=== PATIENT | female | born 1950 | race Caucasian/White ===

== ENCOUNTER 2021-04-29 07:29 | Day surgery (SDC) | payer MEDICARE ==
[2021-04-28 11:31] VITALS: BMI 27.6
[~2021-04-29 07:29] MED LIST: EPINEPHrine 0.3 MG in Ophthalmic Irrigation Solution 500 ML IRR SCH
[2021-04-29] MEDS ORDERED: Cyclopentolate 1% Opth Drop 2 ML BOT ONE (07:53)
[2021-04-29] MEDS ORDERED: Phenylephrine 2.5% Ophth Soln 5 ML BOT ONE (07:53)
[2021-04-29] MEDS ORDERED: Midazolam HCl 2 mg/2 ml Vial ONE (08:05)
[2021-04-29] MEDS ORDERED: PROPOFOL 20 ML ONE (08:05)
[2021-04-29] MEDS ORDERED: Fentanyl 100 MCG/2 ML VIAL ONE (08:05)
[2021-04-29] MEDS ORDERED: Lidocaine 1% PF 5 ML VIAL ONE (09:22)
[2021-04-29] MEDS ORDERED: Maxitrol 0.1% Opth Oint 3.5 GM TUBE ONE (09:22)
[2021-04-29] MEDS ORDERED: Triamcinolone 40 MG/ML VIAL ONE (09:22)
[2021-04-29] MEDS ORDERED: CEFAZOLIN 1 GM VIAL ONE (09:22)
[2021-04-29] MEDS ORDERED: Bupivacaine PF 0.75% SDV 10 ML ONE (09:22)
[2021-04-29] MEDS ORDERED: Lidocaine 4% PF 5 ML AMP ONE (09:22)
== END 2021-04-29 10:28 | disposition home or self-care (01) ==
LOC: SDC 07:29
PROVIDERS: ATTEND Ophthalmology Retina Specialist
PROC: 08T43ZZ Resection of Right Vitreous, Percutaneous Approach (ICD-10-PCS; principal; 2021-04-29)
DX: H43.821 Vitreomacular adhesion, right eye (principal); H43.311 Vitreous membranes and strands, right eye; I10 Essential (primary) hypertension; E78.5 Hyperlipidemia, unspecified; I25.2 Old myocardial infarction; E11.9 Type 2 diabetes mellitus without complications; F17.200 Nicotine dependence, unspecified, uncomplicated; Z86.73 Personal history of transient ischemic attack (TIA), and cerebral infarction without residual deficits; Z79.01 Long term (current) use of anticoagulants; Z79.02 Long term (current) use of antithrombotics/antiplatelets; Z79.4 Long term (current) use of insulin; Z79.82 Long term (current) use of aspirin; Z79.899 Other long term (current) drug therapy; Z95.1 Presence of aortocoronary bypass graft
CPT/HCPCS: J0171; J0690; J2250; J2704; J3010; J3301; J3490

== ENCOUNTER 2021-07-14 14:09 | Inpatient (IN) | payer MEDICARE ==
[2021-07-14] MEDS ORDERED: Pantoprazole 40 MG VIAL ONE (14:53)
[2021-07-14 15:07] LABS: #Eosinphils 0.1 thou/uL (0.0-0.7); #Lymphocytes 1.1 thou/uL (1.20-3.40); #Neutrophils 7.9 thou/uL (1.40-6.50); %Basophils 0.4 % (0.0-1.0); %Eosinophils 1.4 % (0.0-10.0); %Lymphocytes 10.6 % (21.0-51.0); %Monocytes 10.1 % (0.0-10.0); %Neutrophils 77.5 % (42.0-75.0); Hemoglobin 10.8 g/dL (12.0-16.0); Mean Corpuscular HGB CONC 33.1 g/dL (32.0-36.0); Mean Corpuscular Hemoglobin 29.3 pg (27.0-31.0); Mean Corpuscular Volume 88.6 fL (78.0-98.0); Mean Platelet Volume 6.5 fL (7.4-10.4); Platelet Count 369 thou/uL (130-400); RBC Distribution Width 14.4 % (11.5-14.5); Red Blood Cell (RBC) Count 3.68 mill/uL (4.20-5.40); White Blood Cell (WBC) Count 10.2 thou/uL (4.8-10.8)
[2021-07-14 15:26] LABS: ALT (SGPT) 39 U/L (8-55); AST (SGOT) 40 U/L (5-34); Albumin 3.3 g/dL (3.4-4.8); Alkaline Phosphatase 111 U/L (40-110); Anion Gap 18 mmol/L (10-20); BUN (Urea Nitrogen) 32 mg/dL (9.8-20.1); Bilirubin, Total 0.4 mg/dL (0.2-1.2); Calc. Creatinine Clearance 0 mL/min (70-130); Calcium 8.8 mg/dL (7.8-10.44); Carbon Dioxide 20 mmol/L (23-31); Chloride 102 mmol/L (98-107); Globulin 2.8 g/dL (2.4-3.5); Glucose 188 mg/dL (80-115); Potassium 4.7 mmol/L (3.5-5.1); Protein, Total 6.1 g/dL (5.8-8.1); Sodium 135 mmol/L (136-145)
[2021-07-14 15:54] LABS: INR-International Normal Ratio 1.1; Prothrombin Time 13.9 sec (12.0-14.7)
[2021-07-14] MEDS ORDERED: Acetaminophen 325 MG TAB PO PRN (18:31)
[2021-07-14] MEDS ORDERED: Zolpidem Tartrate 5 MG TAB PO PRN (19:05)
[2021-07-14] MEDS ORDERED: Senokot S 8.6-50 MG TAB PO PRN (19:05)
[2021-07-14] MEDS ORDERED: Bisacodyl 5 MG TAB PO PRN (19:05)
[2021-07-14] MEDS ORDERED: Dextrose 50% Abboject 50 ML SYRINGE SLOW IVP PRN (19:19)
[2021-07-14] MEDS ORDERED: Dextrose 5% in Water 1,000 ML IV PRN (19:19)
[2021-07-14] MEDS ORDERED: cloNIDine 0.1 MG TAB PO PRN (19:30)
[2021-07-14 20:27] VITALS: BMI 31.1
[2021-07-14] MEDS: Sodium Chloride 0.9% 1,000 ML IV SCH (21:20)
[2021-07-14] MEDS: HYDROcodone/Acetaminophen 5/325 mg Tablet PO PRN (21:20)
[2021-07-14] MEDS: Donepezil HCl 10 MG TAB PO SCH (21:21)
[2021-07-14] MEDS: Pramipexole Di-HCl 0.25 MG TAB PO SCH (21:34)
[2021-07-14] MEDS: Pantoprazole 40 MG VIAL IVP SCH (21:35)
[2021-07-15 01:02] LABS: SARS-CoV-2 NAA Rapid Test Not Detected (NotDetected)
[2021-07-15] MEDS: HYDROcodone/Acetaminophen 5/325 mg Tablet PO PRN ×4 (04:54→23:08)
[2021-07-15] MEDS: HumaLOG 300 UNITS/3 ML VIAL SC PRN ×2 (04:55→16:51)
[2021-07-15] MEDS: Cilostazol 100 MG TAB PO SCH ×2 (05:14→16:34)
[2021-07-15 06:59] LABS: #Eosinphils 0.2 thou/uL (0.0-0.7); #Lymphocytes 1.3 thou/uL (1.20-3.40); #Neutrophils 6.2 thou/uL (1.40-6.50); %Basophils 0.5 % (0.0-1.0); %Eosinophils 1.9 % (0.0-10.0); %Lymphocytes 14.5 % (21.0-51.0); %Monocytes 11.9 % (0.0-10.0); %Neutrophils 71.3 % (42.0-75.0); Hemoglobin 9.7 g/dL (12.0-16.0); Mean Corpuscular HGB CONC 32.4 g/dL (32.0-36.0); Mean Corpuscular Hemoglobin 28.8 pg (27.0-31.0); Mean Corpuscular Volume 88.8 fL (78.0-98.0); Mean Platelet Volume 6.5 fL (7.4-10.4); Platelet Count 383 thou/uL (130-400); RBC Distribution Width 14.3 % (11.5-14.5); Red Blood Cell (RBC) Count 3.37 mill/uL (4.20-5.40); White Blood Cell (WBC) Count 8.7 thou/uL (4.8-10.8)
[2021-07-15 07:19] LABS: Anion Gap 18 mmol/L (10-20); BUN (Urea Nitrogen) 31 mg/dL (9.8-20.1); Calc. Creatinine Clearance 50 mL/min (70-130); Calcium 8.4 mg/dL (7.8-10.44); Carbon Dioxide 18 mmol/L (23-31); Chloride 107 mmol/L (98-107); Glucose 164 mg/dL (80-115); Potassium 4.2 mmol/L (3.5-5.1); Sodium 139 mmol/L (136-145)
[2021-07-15] MEDS: Pantoprazole 40 MG VIAL IVP SCH ×2 (09:59→21:11)
[2021-07-15] MEDS: Atorvastatin Calcium 40 MG TAB PO SCH (10:03)
[2021-07-15] MEDS: Ascorbic Acid 500 mg Chewable Tablet PO SCH (10:03)
[2021-07-15] MEDS: Ferrous Sulfate 325 MG TAB PO SCH (10:03)
[2021-07-15] MEDS: Aripiprazole 2 MG TAB PO SCH (10:03)
[2021-07-15] MEDS: Sodium Chloride 0.9% 1,000 ML IV SCH ×2 (10:08→23:07)
[2021-07-15] MEDS ORDERED: PROPOFOL 200 MG/20 ML VIAL ONE (11:35)
[2021-07-15] MEDS ORDERED: hydrALAZINE 20 MG/ML VIAL SLOW IVP SCH (12:00)
[2021-07-15] MEDS: Pramipexole Di-HCl 0.25 MG TAB PO SCH (21:23)
[2021-07-15] MEDS: Donepezil HCl 10 MG TAB PO SCH (21:28)
[2021-07-16] MEDS: HYDROcodone/Acetaminophen 5/325 mg Tablet PO PRN ×2 (04:58→13:47)
[2021-07-16] MEDS: Ascorbic Acid 500 mg Chewable Tablet PO SCH (07:56)
[2021-07-16] MEDS ORDERED: traZODone HCl 50 MG TAB PER TUBE PRN (07:56)
[2021-07-16] MEDS ORDERED: Simethicone Chewable 80 MG TAB PO PRN (07:56)
[2021-07-16] MEDS: Ferrous Sulfate 325 MG TAB PO SCH (07:56)
[2021-07-16] MEDS ORDERED: HYDROcodone/Acetaminophen 5/325 mg Tablet PER TUBE PRN (07:56)
[2021-07-16] MEDS ORDERED: Acetaminophen 650 MG/20.3 ML UDCUP PER TUBE PRN (07:56)
[2021-07-16] MEDS: Aripiprazole 2 MG TAB PO SCH (07:56)
[2021-07-16] MEDS ORDERED: Calcium Carbonate 500 MG ChewTAB PER TUBE PRN (07:56)
[2021-07-16] MEDS: Atorvastatin Calcium 40 MG TAB PO SCH (07:56)
[2021-07-16] MEDS: Cilostazol 100 MG TAB PO SCH ×2 (07:57→16:10)
[2021-07-16] MEDS: Pantoprazole 40 MG VIAL IVP SCH ×2 (08:00→20:37)
[2021-07-16] MEDS: Carvedilol 6.25 MG TAB PER TUBE SCH ×2 (10:45→20:37)
[2021-07-16] MEDS: Aspirin Chewable 81 MG TAB PER TUBE SCH (10:46)
[2021-07-16] MEDS: Amlodipine 5 MG TAB PER TUBE SCH (10:47)
[2021-07-16] MEDS: TICAGRELOR 90 MG TABLET PER TUBE SCH ×2 (10:47→20:39)
[2021-07-16] MEDS: Isosorbide Dinitrate 20 MG TAB PO SCH ×3 (10:47→20:38)
[2021-07-16] MEDS: Lantus 1000 UNITS/10 ML VIAL SC SCH ×2 (10:49→20:39)
[2021-07-16] MEDS: HumaLOG 300 UNITS/3 ML VIAL SC PRN ×2 (10:56→16:11)
[2021-07-16] MEDS: Sodium Chloride 0.9% 1,000 ML IV SCH ×2 (10:59→22:51)
[2021-07-16] MEDS: hydrALAZINE 25 MG TAB PER TUBE SCH ×2 (13:49→21:19)
[2021-07-16] MEDS: Ondansetron PF 4 MG/2 ML Vial IVP PRN ×2 (14:02→21:38)
[2021-07-16 17:50] LABS: Anion Gap 10 mmol/L (10-20); BUN (Urea Nitrogen) 25 mg/dL (9.8-20.1); Calc. Creatinine Clearance 61 mL/min (70-130); Calcium 8.2 mg/dL (7.8-10.44); Carbon Dioxide 22 mmol/L (23-31); Chloride 112 mmol/L (98-107); Glucose 230 mg/dL (80-115); Potassium 4.1 mmol/L (3.5-5.1); Sodium 140 mmol/L (136-145)
[2021-07-16] MEDS: Pramipexole Di-HCl 0.25 MG TAB PO SCH (20:37)
[2021-07-16] MEDS: Donepezil HCl 10 MG TAB PO SCH (20:39)
[2021-07-16] MEDS ORDERED: Melatonin 3 MG TAB PER TUBE SCH (21:00)
[2021-07-16] MEDS: Loperamide HCl 2 MG CAP PO PRN (22:49)
[2021-07-17] MEDS: HYDROcodone/Acetaminophen 5/325 mg Tablet PO PRN ×3 (00:49→13:54)
[2021-07-17] MEDS: hydrALAZINE 25 MG TAB PER TUBE SCH ×2 (05:50→13:54)
[2021-07-17] MEDS: HumaLOG 300 UNITS/3 ML VIAL SC PRN (05:54)
[2021-07-17 07:59] VITALS: TEMP 97.9
[2021-07-17] MEDS: Pantoprazole 40 MG VIAL IVP SCH (09:35)
[2021-07-17] MEDS: Atorvastatin Calcium 40 MG TAB PO SCH (09:35)
[2021-07-17] MEDS: TICAGRELOR 90 MG TABLET PER TUBE SCH (09:35)
[2021-07-17] MEDS: Aripiprazole 2 MG TAB PO SCH (09:35)
[2021-07-17] MEDS: Ferrous Sulfate 325 MG TAB PO SCH (09:35)
[2021-07-17] MEDS: Aspirin Chewable 81 MG TAB PER TUBE SCH (09:35)
[2021-07-17] MEDS: Isosorbide Dinitrate 20 MG TAB PO SCH (09:35)
[2021-07-17] MEDS: Cilostazol 100 MG TAB PO SCH (09:35)
[2021-07-17] MEDS: Carvedilol 6.25 MG TAB PER TUBE SCH (09:35)
[2021-07-17] MEDS: Ascorbic Acid 500 mg Chewable Tablet PO SCH (09:36)
[2021-07-17] MEDS: Lantus 1000 UNITS/10 ML VIAL SC SCH (09:36)
[2021-07-17] MEDS: Amlodipine 5 MG TAB PER TUBE SCH (09:36)
[2021-07-17] MEDS: Loperamide HCl 2 MG CAP PO PRN (09:40)
[2021-07-17 10:07] VITALS: BP 154/75
== END 2021-07-17 14:43 | DRG 394 ==
LOC: ERS 14:09 → T4-A 18:00 → ERS 18:33
PROVIDERS: ADMIT Internal Medicine; ATTEND Internal Medicine
PROC: 0DJ08ZZ Inspection of Upper Intestinal Tract, Via Natural or Artificial Opening Endoscopic (ICD-10-PCS; principal; 2021-07-14)
DX: K94.21 Gastrostomy hemorrhage (principal); N17.9 Acute kidney failure, unspecified; I69.954 Hemiplegia and hemiparesis following unspecified cerebrovascular disease affecting left non-dominant side; E46 Unspecified protein-calorie malnutrition; K22.10 Ulcer of esophagus without bleeding; Y83.8 Other surgical procedures as the cause of abnormal reaction of the patient, or of later complication, without mention of misadventure at the time of the procedure; Z20.822 Contact with and (suspected) exposure to COVID-19; Z66 Do not resuscitate; I25.10 Atherosclerotic heart disease of native coronary artery without angina pectoris; K94.23 Gastrostomy malfunction; E11.51 Type 2 diabetes mellitus with diabetic peripheral angiopathy without gangrene; D64.9 Anemia, unspecified; F03.90 Unspecified dementia, unspecified severity, without behavioral disturbance, psychotic disturbance, mood disturbance, and anxiety; R13.10 Dysphagia, unspecified; E66.9 Obesity, unspecified; Z87.891 Personal history of nicotine dependence; Z95.5 Presence of coronary angioplasty implant and graft; Z90.49 Acquired absence of other specified parts of digestive tract; Z90.710 Acquired absence of both cervix and uterus; Z79.899 Other long term (current) drug therapy; Z79.82 Long term (current) use of aspirin; Z79.4 Long term (current) use of insulin; Z68.31 Body mass index [BMI] 31.0-31.9, adult; I69.991 Dysphagia following unspecified cerebrovascular disease; I69.922 Dysarthria following unspecified cerebrovascular disease
CPT/HCPCS: 36415; 36416; 80048; 85610; 85730; 86850; 86900; 86901; 96374; C9113; J0360; J1815; J2405; J2704; J7050; U0002

== ENCOUNTER 2021-07-22 12:44 | Inpatient (IN) | payer MEDICARE ==
[2021-07-22 16:29] LABS: #Eosinphils 0.1 thou/uL (0.0-0.7); #Lymphocytes 1.1 thou/uL (1.20-3.40); #Monocytes 0.8 thou/uL (0.11-0.59); #Neutrophils 5.9 thou/uL (1.40-6.50); %Basophils 0.3 % (0.0-1.0); %Eosinophils 1.5 % (0.0-10.0); %Lymphocytes 14.1 % (21.0-51.0); %Monocytes 10.6 % (0.0-10.0); %Neutrophils 73.5 % (42.0-75.0); Hemoglobin 9.4 g/dL (12.0-16.0); Mean Corpuscular Hemoglobin 30.1 pg (27.0-31.0); Mean Platelet Volume 6.5 fL (7.4-10.4); Platelet Count 292 thou/uL (130-400); RBC Distribution Width 14.3 % (11.5-14.5); Red Blood Cell (RBC) Count 3.12 mill/uL (4.20-5.40)
[2021-07-22 16:50] LABS: ALT (SGPT) 21 U/L (8-55); AST (SGOT) 20 U/L (5-34); Alkaline Phosphatase 99 U/L (40-110); Anion Gap 12 mmol/L (10-20); BUN (Urea Nitrogen) 14 mg/dL (9.8-20.1); Bilirubin, Total 0.2 mg/dL (0.2-1.2); Calc. Creatinine Clearance 0 mL/min (70-130); Calcium 8.5 mg/dL (7.8-10.44); Carbon Dioxide 21 mmol/L (23-31); Chloride 110 mmol/L (98-107); Globulin 2.7 g/dL (2.4-3.5); Glucose 129 mg/dL (80-115); Potassium 4.4 mmol/L (3.5-5.1); Protein, Total 5.7 g/dL (5.8-8.1); Sodium 139 mmol/L (136-145)
[2021-07-22] MEDS ORDERED: Dextrose 5% in Water 1,000 ML IV PRN (20:26)
[2021-07-22] MEDS ORDERED: Dextrose 50% Abboject 50 ML SYRINGE SLOW IVP PRN (20:26)
[2021-07-22] MEDS ORDERED: Lactated Ringer's 1,000 ML IV SCH (20:30)
[2021-07-22] MEDS ORDERED: Acetaminophen 325 MG Suppository PR PRN (20:31)
[2021-07-22] MEDS ORDERED: Sodium Chloride 0.9% (PF) 10 ML VIAL FS PRN (21:15)
[2021-07-22 21:35] VITALS: BMI 32.3
[2021-07-22] MEDS ORDERED: FLU VACC QS2021-22(65YR UP)/PF 240 MCG/0.7 ML SYRINGE IM ONE (22:00)
[2021-07-22] MEDS: Pantoprazole 40 MG VIAL IVP SCH (22:12)
[2021-07-22] MEDS: Ampicillin/Sulbactam 3 GM in Sodium Chloride 0.9% 100 ML IVPB SCH (23:51)
[2021-07-23] MEDS: Dextrose 5 %-0.45 % NaCl 1,000 ML IV SCH ×2 (00:08→16:26)
[2021-07-23] MEDS: Ampicillin/Sulbactam 3 GM in Sodium Chloride 0.9% 100 ML IVPB SCH ×4 (04:37→21:36)
[2021-07-23 05:41] LABS: #Eosinphils 0.1 thou/uL (0.0-0.7); #Lymphocytes 1.2 thou/uL (1.20-3.40); #Monocytes 0.7 thou/uL (0.11-0.59); #Neutrophils 5.6 thou/uL (1.40-6.50); %Basophils 0.4 % (0.0-1.0); %Eosinophils 1.8 % (0.0-10.0); %Lymphocytes 16.1 % (21.0-51.0); %Monocytes 8.7 % (0.0-10.0); %Neutrophils 73.1 % (42.0-75.0); Hemoglobin 9.2 g/dL (12.0-16.0); Mean Corpuscular HGB CONC 32.8 g/dL (32.0-36.0); Mean Corpuscular Hemoglobin 29.3 pg (27.0-31.0); Mean Corpuscular Volume 89.3 fL (78.0-98.0); Mean Platelet Volume 6.4 fL (7.4-10.4); Platelet Count 261 thou/uL (130-400); RBC Distribution Width 14.2 % (11.5-14.5); Red Blood Cell (RBC) Count 3.14 mill/uL (4.20-5.40); White Blood Cell (WBC) Count 7.7 thou/uL (4.8-10.8)
[2021-07-23 06:03] LABS: Anion Gap 12 mmol/L (10-20); BUN (Urea Nitrogen) 11 mg/dL (9.8-20.1); Calc. Creatinine Clearance 87 mL/min (70-130); Calcium 8.4 mg/dL (7.8-10.44); Carbon Dioxide 21 mmol/L (23-31); Chloride 109 mmol/L (98-107); Glucose 105 mg/dL (80-115); Potassium 4.1 mmol/L (3.5-5.1); Sodium 138 mmol/L (136-145)
[2021-07-23] MEDS: Lidocaine 5% Patch TD SCH (10:26)
[2021-07-23] MEDS: Pantoprazole 40 MG VIAL IVP SCH ×2 (10:26→21:33)
[2021-07-23] MEDS: hydrALAZINE 20 MG/ML VIAL SLOW IVP PRN ×3 (10:28→21:33)
[2021-07-23] MEDS ORDERED: Morphine 4 MG/ML VIAL SLOW IVP PRN (11:14)
[2021-07-23] MEDS ORDERED: Iopamidol 300 61% 50 ML VIAL FS ONE (11:24)
[2021-07-23 12:12] LABS: SARS-CoV-2 PCR by NAA Not Detected (NotDetected)
[2021-07-23] MEDS: Acetaminophen 325 MG/10.15 ML UDCUP PER TUBE PRN ×2 (16:36→21:33)
[2021-07-23] MEDS: cloNIDine 0.1 MG TAB PER TUBE SCH ×2 (16:37→21:33)
[2021-07-23] MEDS ORDERED: Donepezil HCl 10 MG TAB PER TUBE SCH (21:00)
[2021-07-23] MEDS ORDERED: Transdermal Patch Removal TOP SCH (21:00)
[2021-07-23] MEDS ORDERED: Atorvastatin Calcium 40 MG TAB PER TUBE SCH (21:00)
[2021-07-23] MEDS: Carvedilol 6.25 MG TAB PER TUBE SCH (21:33)
[2021-07-23] MEDS ORDERED: LACTINEX 1 TAB PER TUBE SCH (23:08)
[2021-07-24] MEDS ORDERED: Dextrose 50% Abboject 50 ML SYRINGE SLOW IVP PRN (00:11)
[2021-07-24] MEDS ORDERED: Dextrose 5% in Water 1,000 ML IV PRN (00:11)
[2021-07-24] MEDS ORDERED: HumaLOG 300 UNITS/3 ML VIAL SC PRN (00:11)
[2021-07-24] MEDS: hydrALAZINE 20 MG/ML VIAL SLOW IVP PRN (00:45)
[2021-07-24] MEDS: Ampicillin/Sulbactam 3 GM in Sodium Chloride 0.9% 100 ML IVPB SCH ×3 (03:33→16:00)
[2021-07-24] MEDS: Acetaminophen 325 MG/10.15 ML UDCUP PER TUBE PRN ×3 (03:33→19:52)
[2021-07-24] MEDS: HumaLOG 300 UNITS/3 ML VIAL SC PRN ×2 (05:45→13:05)
[2021-07-24] MEDS ORDERED: Aripiprazole 2 MG TAB PER TUBE SCH (09:00)
[2021-07-24] MEDS ORDERED: Amlodipine 5 MG TAB PER TUBE SCH (09:00)
[2021-07-24] MEDS ORDERED: Ascorbic Acid 500 mg Chewable Tablet PER TUBE SCH (09:00)
[2021-07-24] MEDS ORDERED: Aspirin 81 mg Enteric Coated Tablet PER TUBE SCH (09:00)
[2021-07-24] MEDS: cloNIDine 0.1 MG TAB PER TUBE SCH ×2 (09:28→16:00)
[2021-07-24] MEDS: Carvedilol 6.25 MG TAB PER TUBE SCH (09:29)
[2021-07-24] MEDS: LACTINEX 1 TAB PER TUBE SCH ×2 (09:29→16:00)
[2021-07-24] MEDS: Lidocaine 5% Patch TD SCH (09:29)
[2021-07-24] MEDS: Pantoprazole 40 MG VIAL IVP SCH (09:29)
[2021-07-24 14:31] VITALS: TEMP 97.4
[2021-07-24 16:09] VITALS: BP 148/58
== END 2021-07-24 20:03 | DRG 394 ==
LOC: ERS 12:44 → ONC 18:59
PROVIDERS: ADMIT Internal Medicine; ATTEND Internal Medicine
PROC: 0D20XUZ Change Feeding Device in Upper Intestinal Tract, External Approach (ICD-10-PCS; principal; 2021-07-22)
DX: K94.23 Gastrostomy malfunction (principal); I69.954 Hemiplegia and hemiparesis following unspecified cerebrovascular disease affecting left non-dominant side; Y83.8 Other surgical procedures as the cause of abnormal reaction of the patient, or of later complication, without mention of misadventure at the time of the procedure; Z20.822 Contact with and (suspected) exposure to COVID-19; I10 Essential (primary) hypertension; F03.90 Unspecified dementia, unspecified severity, without behavioral disturbance, psychotic disturbance, mood disturbance, and anxiety; E11.51 Type 2 diabetes mellitus with diabetic peripheral angiopathy without gangrene; Z90.49 Acquired absence of other specified parts of digestive tract; Z90.710 Acquired absence of both cervix and uterus; Z87.891 Personal history of nicotine dependence; Z79.82 Long term (current) use of aspirin; Z79.899 Other long term (current) drug therapy; Z79.4 Long term (current) use of insulin; I69.922 Dysarthria following unspecified cerebrovascular disease
CPT/HCPCS: 36415; 36416; 43762; 74176; 80048; 80053; 85025; C9113; J0295; J0360; J1815; J2270; J3490; J7042; J7120; Q9967; U0003; U0005